=== PATIENT | male | born 1940 | race Caucasian/White ===

== ENCOUNTER 2019-11-27 12:05 | Outpatient (CLI) | payer MEDICARE, BC, SELFPAY ==
[2019-11-27 12:37] LABS: Basophils Percent Auto 0.5 % (0.2-1.2); Eosinophils Absolute Auto 0.1 K/mm3 (0-0.3); Eosinophils Percent Auto 1.4 % (0-4.4); Hematocrit 46.2 % (42.0-52.0); Hemoglobin 14.6 g/dL (14.0-18.0); Immature Granulocyte Absolute 0.02 K/mm3 (0.00-0.031); Immature Granulocyte Percent A 0.4 % (0-0.5); Lymphocytes Absolute Auto 1.67 K/mm3 (0.9-3.2); Lymphocytes Percent Auto 29.7 % (18.3-44.2); Mean Corpuscular HGB Conc 31.6 g/dl (32-36); Mean Corpuscular Hemoglobin 29.5 pg (26-34); Mean Corpuscular Volume 93.3 fl (80-100); Mean Platelet Volume 11.7 fl (7.4-10.4); Monocytes Absolute Auto 0.6 K/mm3 (0.1-0.6); Monocytes Percent Auto 10.3 % (2.6-8.5); Neutrophils Absolute Auto 3.3 K/mm3 (1.3-6.7); Neutrophils Percent Auto 57.7 % (45.5-73.1); Platelet Count Result 213 k/mm3 (150-375); Red Blood Count 4.95 M/mm3 (4.6-6.20); Red Cell Distribution Width 14.5 % (11.5-14.5); White Blood Count 5.6 K/mm3 (4.5-10.0)
[2019-11-27 12:49] LABS: Alanine Aminotransferase 21 U/L (4-50); Albumin Level 4.2 g/dL (3.5-5.1); Alkaline Phosphatase 36 U/L (38-126); Aspartate Amino Transferase 27 U/L (17-59); Bilirubin,Total 0.7 mg/dL (0.2-1.3); Blood Urea Nitrogen 28 mg/dL (9-20); Calcium 9.7 mg/dL (8.4-10.2); Carbon Dioxide 32 mmol/L (22-30); Chloride 97 mmol/L (98-107); Estimated Glomerular Filt Rate 54; Glucose 126 mg/dL (75-110); Potassium 3.9 mmol/L (3.4-5.0); Sodium 137 mmol/L (137-145)
== END 2019-11-27 12:06 | disposition home or self-care (01) ==
PROVIDERS: PCP Family Medicine; Visit Provider Family Medicine
DX: I10 Essential (primary) hypertension (principal)
CPT/HCPCS: 36415; 80053; 85025

== ENCOUNTER 2020-12-25 06:54 | Outpatient (CLI) | payer MEDICARE, BC, SELFPAY ==
[2020-12-25 07:36] LABS: Basophils Percent Auto 0.5 % (0.2-1.2); Eosinophils Absolute Auto 0.2 K/mm3 (0-0.3); Eosinophils Percent Auto 2.3 % (0-4.4); Hematocrit 45.8 % (42.0-52.0); Hemoglobin 14.6 g/dL (14.0-18.0); Immature Granulocyte Absolute 0.01 K/mm3 (0.00-0.031); Immature Granulocyte Percent A 0.1 % (0-0.5); Lymphocytes Absolute Auto 1.68 K/mm3 (0.9-3.2); Lymphocytes Percent Auto 21.4 % (18.3-44.2); Mean Corpuscular HGB Conc 31.9 g/dl (32-36); Mean Corpuscular Hemoglobin 30.2 pg (26-34); Mean Corpuscular Volume 94.8 fl (80-100); Mean Platelet Volume 10.7 fl (7.4-10.4); Monocytes Absolute Auto 0.9 K/mm3 (0.1-0.6); Monocytes Percent Auto 11.3 % (2.6-8.5); Neutrophils Absolute Auto 5.1 K/mm3 (1.3-6.7); Neutrophils Percent Auto 64.4 % (45.5-73.1); Platelet Count Result 207 k/mm3 (150-375); Red Blood Count 4.83 M/mm3 (4.6-6.20); Red Cell Distribution Width 15.3 % (11.5-14.5); White Blood Count 7.9 K/mm3 (4.5-10.0)
[2020-12-25 07:49] LABS: Alanine Aminotransferase 24 U/L (4-50); Albumin Level 4.1 g/dL (3.5-5.1); Alkaline Phosphatase 36 U/L (38-126); Anion Gap 3 mmol/L (8-16); Aspartate Amino Transferase 33 U/L (17-59); Bilirubin,Total 0.6 mg/dL (0.2-1.3); Blood Urea Nitrogen 23 mg/dL (9-20); Calcium 9.1 mg/dL (8.4-10.2); Carbon Dioxide 35 mmol/L (22-30); Chloride 103 mmol/L (98-107); Cholesterol 110 mg/dL (0-200); Estimated Glomerular Filt Rate 59; Glucose 106 mg/dL (75-110); HDL Direct 38 mg/dL; Potassium 4.5 mmol/L (3.4-5.0); Sodium 141 mmol/L (137-145); Triglycerides 86 mg/dL (<150)
[2020-12-25 08:00] LABS: LDL Cholesterol Direct 50 mg/dL
== END 2020-12-25 06:55 | disposition home or self-care (01) ==
PROVIDERS: PCP Family Medicine; Visit Provider Physician Assistant
DX: I10 Essential (primary) hypertension (principal); E78.2 Mixed hyperlipidemia
CPT/HCPCS: 36415; 80053; 80061; 85025

== ENCOUNTER 2021-07-07 12:21 | Outpatient (CLI) | payer MEDICARE, BC, SELFPAY ==
--- NOTE | ~2021-07-07 | XR_ITS ---
EXAMINATION: XR chest 2V EXAM DATE: 07/07/2021 12:41 INDICATION: R06.02 - Shortness of breath. TECHNIQUE: Frontal and lateral projections of the chest obtained and reviewed. Comparison is made to prior examination from 05/19/2018. FINDINGS: There is abnormal reticular prominence, differential diagnosis including interstitial lung disease and pulmonary edema. Heart is normal in size. This is more pronounced than on previous exami nation. No confluent consolidation, pneumothorax or pleural effusion suspected. Shoulder replacements . IMPRESSION: Prominent reticulation, edema and/or interstitial lung disease. Reviewed, dictated and finalized at location B.
== END 2021-07-07 12:22 | disposition home or self-care (01) ==
PROVIDERS: PCP Family Medicine; Visit Provider Physician Assistant
DX: J44.9 Chronic obstructive pulmonary disease, unspecified (principal); R06.00 Dyspnea, unspecified; R06.02 Shortness of breath
CPT/HCPCS: 71046

== ENCOUNTER 2021-07-18 06:36 | Outpatient (CLI) | payer MEDICARE, BC, SELFPAY ==
[2021-07-18 08:05] LABS: Alanine Aminotransferase 22 U/L (4-50); Albumin Level 4.6 g/dL (3.5-5.1); Alkaline Phosphatase 31 U/L (38-126); Anion Gap 9 mmol/L (8-16); Aspartate Amino Transferase 33 U/L (17-59); Bilirubin,Total 0.8 mg/dL (0.2-1.3); Blood Urea Nitrogen 23 mg/dL (9-20); Calcium 9.2 mg/dL (8.4-10.2); Carbon Dioxide 30 mmol/L (22-30); Chloride 102 mmol/L (98-107); Cholesterol 127 mg/dL (0-200); Estimated Glomerular Filt Rate 59; Glucose 111 mg/dL (65-110); HDL Direct 40 mg/dL; Potassium 4.6 mmol/L (3.4-5.0); Sodium 141 mmol/L (137-145); Triglycerides 87 mg/dL (<150)
[2021-07-18 08:16] LABS: LDL Cholesterol Direct 65 mg/dL
== END 2021-07-18 06:37 | disposition home or self-care (01) ==
PROVIDERS: PCP Family Medicine; Visit Provider Internal Medicine Cardiovascular Disease
DX: I25.10 Atherosclerotic heart disease of native coronary artery without angina pectoris (principal); I25.84 Coronary atherosclerosis due to calcified coronary lesion; E78.00 Pure hypercholesterolemia, unspecified
CPT/HCPCS: 36415; 80053; 80061

== ENCOUNTER 2021-08-09 09:08 | Outpatient (CLI) | payer MEDICARE, BC, SELFPAY ==
[2021-08-09 09:55] LABS: Anion Gap 8 mmol/L (8-16); Blood Urea Nitrogen 22 mg/dL (9-20); Calcium 9.3 mg/dL (8.4-10.2); Carbon Dioxide 34 mmol/L (22-30); Chloride 103 mmol/L (98-107); Estimated Glomerular Filt Rate 59; Glucose 185 mg/dL (65-110); Potassium 3.8 mmol/L (3.4-5.0); Sodium 145 mmol/L (137-145)
== END 2021-08-09 09:09 | disposition home or self-care (01) ==
LOC: ANHLAB 09:09
PROVIDERS: PCP Family Medicine; Visit Provider Physician Assistant
DX: I10 Essential (primary) hypertension (principal)
CPT/HCPCS: 36415; 80048

== ENCOUNTER 2022-01-14 06:50 | Outpatient (CLI) | payer MEDICARE, BC, SELFPAY ==
[2022-01-14 07:34] LABS: Basophils Absolute Auto 0.1 K/mm3 (0.0-0.1); Basophils Percent Auto 0.6 % (0.2-1.2); Eosinophils Absolute Auto 0.2 K/mm3 (0-0.3); Eosinophils Percent Auto 1.9 % (0-4.4); Hematocrit 45.1 % (42.0-52.0); Hemoglobin 14.5 g/dL (14.0-18.0); Immature Granulocyte Absolute 0.02 K/mm3 (0.00-0.031); Immature Granulocyte Percent A 0.2 % (0-0.5); Lymphocytes Absolute Auto 1.39 K/mm3 (0.9-3.2); Lymphocytes Percent Auto 16.7 % (18.3-44.2); Mean Corpuscular HGB Conc 32.2 g/dl (32-36); Mean Corpuscular Hemoglobin 30.7 pg (26-34); Mean Corpuscular Volume 95.3 fl (80-100); Mean Platelet Volume 11.6 fl (7.4-10.4); Monocytes Absolute Auto 0.8 K/mm3 (0.1-0.6); Monocytes Percent Auto 9.4 % (2.6-8.5); Neutrophils Absolute Auto 5.9 K/mm3 (1.3-6.7); Neutrophils Percent Auto 71.2 % (45.5-73.1); Platelet Count Result 232 k/mm3 (150-375); Red Blood Count 4.73 M/mm3 (4.6-6.20); Red Cell Distribution Width 14.4 % (11.5-14.5); White Blood Count 8.3 K/mm3 (4.5-10.0)
[2022-01-14 07:48] LABS: Alanine Aminotransferase 17 U/L (4-50); Albumin Level 3.9 g/dL (3.5-5.1); Alkaline Phosphatase 58 U/L (38-126); Anion Gap 6 mmol/L (8-16); Aspartate Amino Transferase 23 U/L (17-59); Bilirubin,Total 0.8 mg/dL (0.2-1.3); Blood Urea Nitrogen 20 mg/dL (9-20); Calcium 8.6 mg/dL (8.4-10.2); Carbon Dioxide 30 mmol/L (22-30); Chloride 104 mmol/L (98-107); Cholesterol 87 mg/dL (0-200); Estimated Glomerular Filt Rate > 60; Glucose 116 mg/dL (65-110); HDL Direct 39 mg/dL; Potassium 3.9 mmol/L (3.4-5.0); Sodium 140 mmol/L (137-145); Triglycerides 70 mg/dL (<150)
[2022-01-14 07:59] LABS: LDL Cholesterol Direct < 30 mg/dL
== END 2022-01-14 06:51 | disposition home or self-care (01) ==
LOC: ANHLAB 06:52
PROVIDERS: PCP Family Medicine; Visit Provider Nurse Practitioner Gerontology
DX: E78.2 Mixed hyperlipidemia (principal); I48.11 Longstanding persistent atrial fibrillation; R00.1 Bradycardia, unspecified; I10 Essential (primary) hypertension
CPT/HCPCS: 36415; 80053; 80061; 84443; 85025

== ENCOUNTER 2023-02-05 07:02 | Outpatient (CLI) | payer MEDICARE, BC, SELFPAY ==
[2023-02-05 07:43] LABS: Alanine Aminotransferase 22 U/L (6-50); Albumin Level 4.1 g/dL (3.5-5.1); Alkaline Phosphatase 56 U/L (38-126); Anion Gap 6 mmol/L (8-16); Aspartate Amino Transferase 25 U/L (17-59); Bilirubin,Total 0.9 mg/dL (0.2-1.3); Blood Urea Nitrogen 24 mg/dL (9-20); Calcium 9.1 mg/dL (8.4-10.2); Carbon Dioxide 32 mmol/L (22-30); Chloride 103 mmol/L (98-107); Cholesterol 105 mg/dL (0-200); Estimated Glomerular Filt Rate > 60; Glucose 107 mg/dL (65-110); HDL Direct 45 mg/dL; Potassium 3.9 mmol/L (3.4-5.0); Sodium 141 mmol/L (137-145); Triglycerides 87 mg/dL (<150)
[2023-02-05 07:54] LABS: LDL Cholesterol Direct 38 mg/dL
[2023-02-05 08:25] LABS: Basophils Absolute Auto 0.1 K/mm3 (0.0-0.1); Basophils Percent Auto 0.9 % (0.2-1.2); Eosinophils Absolute Auto 0.2 K/mm3 (0-0.3); Eosinophils Percent Auto 2.6 % (0-4.4); Hematocrit 47.8 % (42.0-52.0); Immature Granulocyte Absolute 0.01 K/mm3 (0.00-0.031); Immature Granulocyte Percent A 0.2 % (0-0.5); Lymphocytes Absolute Auto 1.51 K/mm3 (0.9-3.2); Lymphocytes Percent Auto 23.4 % (18.3-44.2); Mean Corpuscular HGB Conc 31.4 g/dl (32-36); Mean Corpuscular Hemoglobin 30.4 pg (26-34); Mean Corpuscular Volume 96.8 fl (80-100); Monocytes Absolute Auto 0.8 K/mm3 (0.1-0.6); Monocytes Percent Auto 11.9 % (2.6-8.5); Neutrophils Absolute Auto 3.9 K/mm3 (1.3-6.7); Platelet Count Result 188 k/mm3 (150-375); Red Blood Count 4.94 M/mm3 (4.6-6.20); Red Cell Distribution Width 14.8 % (11.5-14.5); White Blood Count 6.5 K/mm3 (4.5-10.0)
== END 2023-02-05 07:03 | disposition home or self-care (01) ==
LOC: ANHLAB 07:04
PROVIDERS: PCP Family Medicine; Visit Provider Nurse Practitioner Gerontology
DX: I11.0 Hypertensive heart disease with heart failure (principal); I50.9 Heart failure, unspecified; I48.91 Unspecified atrial fibrillation; E78.2 Mixed hyperlipidemia
CPT/HCPCS: 36415; 80053; 80061; 85025

== ENCOUNTER 2023-06-08 11:49 | Outpatient (CLI) | payer MEDICARE, BC, SELFPAY ==
[2023-06-08 12:25] LABS: Alanine Aminotransferase 23 U/L (6-50); Albumin Level 4.1 g/dL (3.5-5.1); Alkaline Phosphatase 54 U/L (38-126); Anion Gap 7 mmol/L (8-16); Aspartate Amino Transferase 28 U/L (17-59); Blood Urea Nitrogen 26 mg/dL (9-20); Carbon Dioxide 29 mmol/L (22-30); Chloride 100 mmol/L (98-107); Estimated Glomerular Filt Rate 49; Glucose 90 mg/dL (65-110); Potassium 3.6 mmol/L (3.4-5.0); Sodium 136 mmol/L (137-145)
[2023-06-08 12:32] LABS: NT Pro B Type Natriuretic Pept 1140 pg/mL (19.9-100)
== END 2023-06-08 11:50 | disposition home or self-care (01) ==
LOC: ANHLAB 11:52
PROVIDERS: PCP Family Medicine; Visit Provider Family Medicine
DX: I10 Essential (primary) hypertension (principal); I50.32 Chronic diastolic (congestive) heart failure
CPT/HCPCS: 36415; 80053; 83880

== ENCOUNTER 2024-02-19 06:58 | Outpatient (CLI) | payer MEDICARE, BC, SELFPAY ==
[2024-02-19 07:33] LABS: Alanine Aminotransferase 20 U/L (6-50); Albumin Level 4.1 g/dL (3.5-5.1); Alkaline Phosphatase 55 U/L (38-126); Anion Gap 4 mmol/L (4-12); Aspartate Amino Transferase 24 U/L (17-59); Bilirubin,Total 0.8 mg/dL (0.2-1.3); Blood Urea Nitrogen 23 mg/dL (9-20); Calcium 9.3 mg/dL (8.4-10.2); Carbon Dioxide 33 mmol/L (22-30); Chloride 103 mmol/L (98-107); Cholesterol 102 mg/dL (0-200); Estimated Glomerular Filt Rate 49; Glucose 118 mg/dL (65-110); HDL Direct 50 mg/dL; Sodium 140 mmol/L (137-145); Triglycerides 100 mg/dL (<150)
[2024-02-19 07:43] LABS: LDL Cholesterol Direct 46 mg/dL
[2024-02-19 07:44] LABS: Basophils Absolute Auto 0.1 K/mm3 (0.0-0.1); Eosinophils Absolute Auto 0.2 K/mm3 (0-0.3); Eosinophils Percent Auto 2.2 % (0-4.4); Hematocrit 48.8 % (42.0-52.0); Hemoglobin 15.2 g/dL (14.0-18.0); Immature Granulocyte Absolute 0.09 K/mm3 (0.00-0.031); Immature Granulocyte Percent A 1.3 % (0-0.5); Lymphocytes Percent Auto 27.8 % (18.3-44.2); Mean Corpuscular HGB Conc 31.1 g/dl (32-36); Mean Corpuscular Hemoglobin 30.2 pg (26-34); Mean Platelet Volume 11.6 fl (7.4-10.4); Monocytes Absolute Auto 0.7 K/mm3 (0.1-0.6); Monocytes Percent Auto 10.4 % (2.6-8.5); Neutrophils Absolute Auto 3.9 K/mm3 (1.3-6.7); Neutrophils Percent Auto 57.3 % (45.5-73.1); Platelet Count Result 187 k/mm3 (150-375); Red Blood Count 5.03 M/mm3 (4.6-6.20); Red Cell Distribution Width 14.9 % (11.5-14.5); White Blood Count 6.8 K/mm3 (4.5-10.0)
== END 2024-02-19 06:59 | disposition home or self-care (01) ==
LOC: ANHLAB 07:01
PROVIDERS: PCP Family Medicine; Visit Provider Family Medicine
DX: I10 Essential (primary) hypertension (principal); I48.91 Unspecified atrial fibrillation; E78.2 Mixed hyperlipidemia; M19.90 Unspecified osteoarthritis, unspecified site; R73.9 Hyperglycemia, unspecified
CPT/HCPCS: 36415; 80053; 80061; 83036; 84443; 84550; 85025

== ENCOUNTER 2024-12-09 08:00 | Outpatient (CLI) | payer MEDICARE, BC, SELFPAY ==
--- OUTSIDE RECORDS SUMMARY | 2024-12-09 08:04 | XMS_ITS | Patient Health Summary ---
Author Organization [facility] Address [address] [place] [address] Care Team Providers Care Mobile Health Vehicle Operator Name Role Phone Jade Dawkins MD Primary Care Provider + Note from [facility],non-owned Affiliates and Associated Physician Practices is amultiple site organization consisting of ambulatory clinics and hospital sitesin [place], [place], [place] and [place]. This disclosure is being madepursuant to the Care Everywhere program and may not contain all information available regarding this patient. Last updated 18.[facility] [employer] [facility] Allergies No known active allergies Medications * Be aware that medications may not be up to date on this document. Alwaysverify current medications with the patient. * fenofibrate micronized (LOFIBRA) 134 MG capsule Take 134 mg by mouth once daily Take with largest meal of the day. * losartan-hydrochlorothiazide (HYZAAR) 100-12.5 MG tablet Take 1 Tab by mouth once daily * diltiazem coated beads 24hr (CARDIZEM CD) 240 MG capsule Take 240 mg by mouth at bedtime * metoprolol succinate XL 24hr (TOPROL XL) 50 MG tablet Take 50 mg by mouth 2 times daily * multivitamin daily (THERAGRAN) tablet Take 1 Tab by mouth daily with food * vitamin D3 (CHOLECALCIFEROL) 1000 UNIT capsule Take 1,000 Units by mouth once daily * acetaminophen (TYLENOL) 325 MG tablet Take 325 mg by mouth every 4 hours as needed for Fever or Pain Maximum allowable Acetaminophen amount = 4 Grams (4000 mg) / 24 hours. * oxyCODONE-acetaminophen (PERCOCET) 5-325 MG tablet(Started 12/31/2015) Take 1 Tab by mouth every 4 hours as needed * amoxicillin-clavulanate (AUGMENTIN) 875-125 MG tablet(Started 12/31/2015) Take 1 Tab by mouth 2 times daily with morning and evening meal Active Problems Problem Noted Date Diagnosed Date Male erectile disorder 12/29/2015 Social History Tobacco Use Types Packs/Day Years Used Date Smoking Tobacco: Former Cigarettes Q uit: 10/25/1994 Alcohol Use Standard Drinks/Week Comments Yes 3 (1 standard drink = 0.6 oz pur e alcohol) Sex and Gender Information Value Date Recorded Sex Assigned at Not on file Gender Identity Not on file Sexual Orientation Not on file Last Filed Vital Signs Vital Sign Reading Time Taken Comments Blood Pressure 144/73 12/31/2015 12:06 PM STEMMER MACHINE Pulse 77 12/31/2015 12:06 PM [employer] MACHINE Temperature 36.3 C (97.3 F) 12/31/2015 12:06 PM [employer]MER MACHINE Respiratory Rate 18 12/31/2015 12:06 PM STEMMER MACHINE Oxygen Saturation 93% 12/31/2015 12:06 PM STEMMER MACHINE Inhaled Oxygen Concentration - - Weight 129.7 kg (286 lb) 12/30/2015 5:48 AM STEMMER MACHINE Height 193 cm (6' 4 ) 12/30/2015 5:48 AM STEMMER MACHINE Body Mass Index 34.81 12/30/2015 5:48 AM STEMMER MACHINE Medical Devices Implanted Type Area Missionary Coordinator Device Identifier Shelf Expiration Date Model / Serial / Lot Kt Penile Prosth Assdonnell Rueda Implanted:Qty: 1 on 12/30/2015 by Fred Diggs MD at [facility] N/A: Penis [employer] 08/06/2020 [id number] / / [id number] Resvr Titan 75cc Implanted:Qty: 1 on 12/30/2015 by Fred Diggs MD at [facility] N/A: Penis [employer] 09/28/2020 [id number] / / [id number] Implt Titan Scrot Cylnr W/Pump 0deg 20cm Implanted:Qty: 1 on 12/30/2015 by Fred Diggs MD at [facility] N/A: Penis [employer] 07/23/2020 [id number] / / [id number] Procedures * CARDIAC EKG ORDER(Performed 01/02/2016) * CARDIAC HOLTER MONITOR ORDER(Performed 01/02/2016) * INSERTION PROSTHESIS PENILE(Performed 12/30/2015) * EKG 12-LEAD(Performed 12/16/2015) Performed for Preop examination * URINALYSIS REFLEX MICROSCOPIC REFLEX CULTURE(Performed 12/16/2015) Performed for Preop examination * BASIC METABOLIC PANEL (CALCIUM TOTAL)(Performed 12/16/2015) Performed for Preop examination * CULTURE URINE(Performed 12/16/2015) Performed for Preop examination, Male erectile disorder Results * CARDIAC EKG ORDER (01/02/2016 2:21 AM STEMMER MACHINE) Narrative 01/02/2016 2:21 AM STEMMER MACHINE Ordered by an unspecified provider. Scanned Document CARDIAC SERVICES ORD ERABLES * CARDIAC HOLTER MONITOR ORDER (01/02/2016 2:21 AM STEMMER MACHINE) Narrative 01/02/2016 2:21 AM STEMMER MACHINE Ordered by an unspecified provider. Scanned Document CARDIAC SERVICES ORD ERABLES * EKG 12-LEAD (12/16/2015 11:36 AM STEMMER MACHINE) Ventricular Rate 60 BPM [facility] Atrial Rate 312 BPM [facility] QRS Duration ms 92 ms [facility] Q-T Interval ms 430 ms [facility] QTC Calculation (Bezet) 430 ms [facility] Calculated R Eva 6 degrees [facility] Calculated T Eva 47 degrees [facility] Interpretation EKG Atrial fibrillation Abnormal ECG No previous ECGs available Confirmed by MICHELLE RAMIREZ MD ([id number]) on 12/16/2015 12:05:31 PM [facility] 12/16/2015 11:3 6 AM STEMMER MACHINE 12/16/2015 12:05 PM STEMMER MACHINE Fred Diggs MD ECG ORDERABLES [facility] * URINALYSIS ROUTINE W/REFLEX TO CULTURE (12/16/2015 10:52 AM STEMMER MACHINE) Color UA Yellow Straw, Yellow, Dark Yellow 12/16/2015 12:49 PM STEMMER MACHINE [facility] Clarity UA Cloudy 12/16/2015 12:49 PM STEMMER MACHINE [facility] Specific [place] UA 1.019 1.005 - 1.030 12/16/2015 12:49 PM STEMMER MACHINE [facility] pH UA 7.5 5.0 - 8.0 pH 12/16/2015 12:49 PM STEMMER MACHINE [facility] Protein UA Negative Negative 12/16/2015 12:49 PM STEMMER MACHINE [facility] Blood UA Negative Negative 12/16/2015 12:49 PM STEMMER MACHINE [facility] Leukocyte UA Negative Negative 12/16/2015 12:49 PM STEMMER MACHINE [facility] Nitrite UA Negative Negative 12/16/2015 12:49 PM STEMMER MACHINE [facility] Glucose UA Negative Negative 12/16/2015 12:49 PM STEMMER MACHINE [facility] Ketone UA Negative Negative 12/16/2015 12:49 PM STEMMER MACHINE [facility] Bilirubin UA Negative Negative 12/16/2015 12:49 PM STEMMER MACHINE [facility] Urobilinogen UA 1.0 0.1 - 1.0 EU/dL 12/16/2015 12:49 PM STEMMER MACHINE [facility] Reflex Status Culture not indicated 12/16/2015 12:49 PM [facility] Urine URINE SPECIMEN OBTAINED BY CLEAN CATCH PROCEDURE / Unknown 12/16/2015 10:52 AM STEMMER MACHINE 12/16/2015 12:14 PM STEMMER MACHINE Fred Diggs MD LAB - URINALYSIS O RDERABLES Performing Organization Address City/[facility] Co de Phone Number [facility] [address] [place] [address] * CULTURE URINE (12/16/2015 10:52 AM STEMMER MACHINE) Culture <10,000 CFU/mL urogenital walker [place] 12/18/2015 9:49 AM STEMMER MACHINE [facility] Urine URINE SPECIMEN OBTAINED BY CLEAN CATCH PROCEDURE / Unknown 12/16/2015 10:52 AM STEMMER MACHINE 12/16/2015 2:06 PM STEMMER MACHINE Fred Diggs MD LAB - MICROBIOLOGY ORDERABLES Performing Organization Address [facility] Co de Phone Number [facility] [address] [place], [place] [address], [facility] [phone] * (ABNORMAL) BASIC METABOLIC PANEL (CALCIUM TOTAL) (12/16/2015 10:52 AM [facility]) Glucose 97 74 - 106 mg/dL 12/16/2015 12:31 PM [facility] Sodium 141 136 - 145 mmol/L 12/16/2015 12:31 PM [facility] Potassium 3.9 3.5 - 5.1 mmol/L 12/16/2015 12:31 PM [facility] Chloride 105 98 - 107 mmol/L 12/16/2015 12:31 PM [facility] CO2 30 22 - 31 mmol/L 12/16/2015 12:31 PM [facility] Calcium 9.2 8.5 - 10.1 mg/dL 12/16/2015 12:31 PM [facility] Anion Gap 6 5 - 20 mmol/L 12/16/2015 12:31 PM [facility] BUN 22(H) 7 - 21 mg/dL 12/16/2015 12:31 PM [facility] Creatinine 1.50(H) 0.50 - 1.30 mg/dL 12/16/2015 12:31 PM [facility] eGFR by MDRD 46 mL/min/1.7 2 12/16/2015 12:31 PM [facility] eGFR by MDRD 56 mL/min/1.7 3m2 12/16/2015 12:31 PM [facility] Blood BLOOD SPECIMEN / Unknown 12/16/2015 10:52 AM STEMMER MACHINE 12/16/2015 12:14 PM [facility] Fred Diggs MD LAB - CHEMISTRY OR DERABLES [facility] [address] [place] [address] Care Teams Mobile Health Vehicle Operator Relationship Specialty Start Date End Date Jade Dawkins MD [address] [place] [phone] PCP - General Family Medicine 12/16/15
--- OUTSIDE RECORDS SUMMARY | 2024-12-09 08:04 | XMS_ITS | Referral Summary ---
Author Organization [facility] [address] Address [address] [place] [address] Care Team Providers Care Brine Supervisor Name Role Phone Jade Dawkins MD Primary Care Provider Encounters Date Type Department Care Team Description 11/30/2024 10:15 AM TIRE MAN Office Visit [facility] [address] [place] [address] Nikki Mullins MD Permanent atrial fibrillation (CMS/HCC) (HCC) (Primary Dx); History of deep vein thrombosis; History of pulmonary embolism; Calcification of coronary artery; Essential hypertension; Chronic anticoagulation; Mixed hyperlipidemia from Last 3 Months Allergies Active Allergy Reactions Criticality Noted Date Comments Metoprolol Fatigue Low 11/11/2022 Medications losartan-hydroCH LOROthiazide (HYZAAR) 100-12.5 mg per tablet take 1 tablet by oral route every day 0 3 Active Additional Information Patient taking differently: oral Every morning, Indications: hypertension, Informant: Self, Reported on 11/30/2024 acetaminophen (TYLENOL) 325 mg tablet Take 2 tablets (650 mg total) by mouth every 6 (six) hours as needed for pain 100 tablet 1 0 Active dilTIAZem CD 180 mg 24 hr capsuleIndicatio ns:Essential hypertension TAKE 1 CAPSULE DAILY 90 capsule 0 Active Additional Information Patient taking differently: 180 mg oral Daily (early AM), Indications: hypertension, Reported on 11/30/2024 clobetasoL (TEMOVATE) 0.05 % gel clobetasol 0.05 % topical gel APPLY A THIN LAYER TO THE AFFECTED AREA(S) BY TOPICAL ROUTE 2 TIMES PER DAY Active furosemide (LASIX) 40 mg tablet 2 Active rivaroxaban (Xarelto) 20 mg tablet Take 1 tablet (20 mg total) by mouth nightly Take with supper 2 Active cholecalciferol (Vitamin D3) 2000 unit capsule Take 1 capsule (2,000 Units total) by mouth daily Active tadalafiL (CIALIS) 5 mg tablet TAKE 1 TABLET BY MOUTH ONCE DAILY FOR SEXUAL ACTIVITY. ADMINISTER APPOXIMATELY 30 MINUTES BEFORE SEXUAL ACTIVITY. DO NOT USE MORE THAN 1 DOSE IN 24 HOURS 3 Active fluticasone-umec lidin-vilanter (Trelegy Ellipta) 100-62.5-25 mcg inhaler Inhale 1 puff daily Active atorvastatin (LIPITOR) 20 mg tablet TAKE 1 TABLET DAILY (REPLACES FENOFIBRATE) 90 tablet 3 4 Active Active Problems Problem Noted Date Diagnosed Date Mixed hyperlipidemia 11/30/2024 Hip pain, bilateral 01/21/2022 Bradycardia 01/21/2022 Exhaustion 07/23/2020 Class 1 obesity with body ma ss index (BMI) of 33.0 to 33.9 in adult 07/18/2020 Risk factors for obstructive sleep apnea 020 History of pulmonary embolism 07/18/2020 Primary osteoarthritis, left shoulder 06/10/2020 Overview (06/10/2020): Added automatically from request for surgery [id number] Osteoarthritis of right shoulder 12/18/2019 Overview (12/18/2019): Added automatically from request for surgery [id number] Chronic anticoagulation 07/12/2019 History of deep vein thrombosis 07/12/2019 Other male erectile dysfunction 07/12/2019 Hypercholesterolemia 10/27/2016 Overview (01/28/2017): Hypercholesterolemia Calcification of coronary artery 11/18/2015 Overview (01/28/2017): Coronary artery calcification Other emphysema 11/18/2015 Overview (01/28/2017): Chronic obstructive pulmonary disease, unspecified Essential hypertension 03/10/2014 Overview (01/28/2017): HYPERTENSION NOS Atrial flutter ([facility]) 03/10/2014 Overview (01/29/2017): ATRIAL FLUTTER Permanent atrial fibrillation ([facility]) 03/10/20 14 Overview (01/29/2017): ATRIAL FIBRILLATION Aortic valve insufficiency 07/17/2013 Overview (01/28/2017): Aortic insufficiency Resolved Problems Problem Noted Date Diagnosed Date Resolved Date Pain of right lower extremity 02/02/2018 07/12/2019 Preoperative state 11/18/2015 9 Overview (01/28/2017): Preoperative cardiovascular examination History of anticoagulant therapy 03/10/2014 07/12/2019 Overview (01/29/2017): LONG-TERM USE ANTICOAGUL Deep vein thrombosis (DVT) d uring current hospitalization ([facility]) 07/17/2013 07/12/2019 Overview (01/28/2017): DVT, lower extremity, distal, chronic History of pulmonary embolism 07/17/2013 11/30/2024 Overview (01/28/2017): Chronic pulmonary embolism Social History Tobacco Use Types Packs/Day Years Used Date Smoking Tobacco: Former Cigarettes 2.5 37 1 958 - 1994 Smokeless Tobacco: Never Tobacco Cessation:Counseling Given: Not Answered Alcohol Use Standard Drinks/Week Comments Yes 0 (1 standard drink = 0.6 oz pur e alcohol) rare Sex and Gender Information Value Date Recorded Sex Assigned at Not on file Legal Sex Male 5:32 PM TIRE MAN Gender Identity Not on file Sexual Orientation Not on file Last Filed Vital Signs Vital Sign Reading Time Taken Comments Blood Pressure 130/60 11/30/2024 10:13 AM TIRE MAN Pulse 60 11/30/2024 10:13 AM TIRE MAN Temperature 36.3 C (97.3 F) 07/21/2020 11:50 AM CDT Respiratory Rate 16 07/21/2020 11:50 AM CDT Oxygen Saturation 95% 11/30/2024 10:13 AM TIRE MAN Inhaled Oxygen Concentration - - Weight 132.5 kg (292 lb) 11/30/2024 10:13 AM TIRE MAN Height 195.6 cm (6' 5 ) 11/30/2024 10:13 AM TIRE MAN Body Mass Index 34.63 11/30/2024 10:13 AM TIRE MAN Plan of Treatment Not on file Medical Devices Implanted Type Area Berry Picker Device Identifier Shelf Expiration Date Model / Serial / Lot [employer] 6191-1-010 Simplex P Radiopaque Full Dose Cement Bone Sterile - [id number] Implanted:Qty: 1 on 03/18/2020 by Von Epperson MD at [facility] Bone Cement Right: Shoulder [employer] 10/24/2021 6191-1-010 / / [id number] [employer] [id number] Global Ap 52mm [place] Glenoid Peg Fixation Premieron - [id number] Implanted:Qty: 1 on 03/18/2020 by Von Epperson MD at [facility] Other - see comments Right: Shoulder [employer] 09/23/2024 [id number] / / [id number] Description:[place] peg gleno id [employer] [id number] Global Unite 12mm Shoulder 135d Body Humeral Porocoat Sterile - [id number] Implanted:Qty: 1 on 03/18/2020 by Von Epperson MD at [facility] Other - see comments Right: Shoulder [employer] [id number] 07/24/2029 [id number] / / [id number] Description:Anatomic proxima l body [employer] [id number] Global Unite 12mm 120mm Modular Shoulder Standard Stem Humeral - [id number] Implanted:Qty: 1 on 03/18/2020 by Von Epperson MD at [facility] Other - see comments Right: Shoulder [employer] 09/23/2029 [id number] / / [id number] [employer] [id number] Global Unite 52mm 18mm Modular Eccentric Shoulder Head Humeral - [id number] Implanted:Qty: 1 on 03/18/2020 by Von Epperson MD at [facility] Other - see comments Right: Shoulder [employer] 10/24/2029 [id number] / / [id number] Description:Humeral head [employer] [id number] Global Unite 12mm Shoulder 135d Body Humeral Porocoat Sterile - [id number] Implanted:Qty: 1 on 07/20/2020 by Von Epperson MD at [facility] Left: Shoulder [employer] [id number] 11/24/2029 [id number] / / [id number] [employer] [id number] Global Unite 56mm 18mm Shoulder Eccentric Head Humeral - [id number] Implanted:Qty: 1 on 07/20/2020 by Von Epperson MD at [facility] Left: Shoulder [employer] [id number] 12/22/2026 [id number] / / [id number] [employer] 6191-1-010 Simplex P Radiopaque Full Dose Cement Bone Sterile - [id number] Implanted:Qty: 1 on 07/20/2020 at [facility] Left: Shoulder [employer] 10/24/2021 6191-1-010 / / [id number] [employer] [id number] Advantage 56mm [place] Peg Glenoid Component Glenoid Xlpe - [id number] - [id number] Implanted:Qty: 1 on 07/20/2020 by Von Epperson MD at [facility] Left: Shoulder [employer] [id number] 10/24/2022 [id number] / 6 / [employer] [id number] Global Unite 12mm 120mm Modular Shoulder Standard Stem Humeral - [id number] Implanted:Qty: 1 on 07/20/2020 by Von Epperson MD at [facility] Left: Shoulder [employer] [id number] 11/24/2029 [id number] / / [id number] Explanted Type Area Berry Picker Device Identifier Shelf Expiration Date Model / Serial / Lot [employer] 6191-1-010 Simplex P Radiopaque Full Dose Cement Bone Sterile - [id number] Explanted:Qty: 1 on 07/20/2020 at [facility] Left: Shoulder [employer] 6191-1-01 0 / / Insurance MEDICARE [employer] [employer] MEDICARE [facility] TRADITIONAL MEDICARE [employer] [employer] Advance Directives For more information, please contact: [phone] * Full Code (Latest Code Status on File) Date Activated Date Inactivated Comments 07/20/2020 12:55 PM 07/21/2020 5:24 PM * Full Code Date Activated Date Inactivated Comments 03/18/2020 2:52 PM 03/20/2020 9:15 PM Care Teams Brine Supervisor Relationship Specialty Start Date End Date Jade Dawkins MD [address] [facility] [address] [place] [address] PCP - General 02/07/13
--- OUTSIDE RECORDS SUMMARY | 2024-12-09 08:04 | XMS_ITS | Clinical Summary ---
Author Organization [facility] [place] [address] Address [address] [place] [address] Care Team Providers Care Shear Operator Name Role Phone Jade Dawkins MD Primary Care Provider Allergies Active Allergy Reactions Criticality Noted Date [...] (06/10/2020): Added automatically from request for surgery [id number] Osteoarthritis of right shoulder 12/18/2019 Overview (12/18/2019): Added automatically from request for surgery [id number] Chronic anticoagulation 07/12/2019 History of deep vein thrombosis 07/12/2019 Other male erectile dysfunction 07/12/2019 Hypercholesterolemia 10/27/2016 Overview (01/28/2017): Hypercholesterolemia Calcification of coronary artery 11/18/2015 Overview (01/28/2017): Coronary artery calcification Other emphysema 11/18/2015 Overview (01/28/2017): Chronic obstructive pulmonary disease, unspecified Essential hypertension 03/10/2014 Overview (01/28/2017): HYPERTENSION NOS Atrial flutter ([facility]) 03/10/2014 Overview (01/29/2017): ATRIAL FLUTTER Permanent atrial fibrillation ([facility]) 03/10/20 14 Overview (01/29/2017): ATRIAL FIBRILLATION Aortic valve insufficiency 07/17/2013 Overview (01/28/2017): Aortic insufficiency Resolved Problems Problem Noted Date Diagnosed Date Resolved Date Pain of right lower extremity 02/02/2018 07/12/2019 Preoperative state 11/18/2015 9 Overview (01/28/2017): Preoperative cardiovascular examination History of anticoagulant therapy 03/10/2014 07/12/2019 Overview (01/29/2017): LONG-TERM USE ANTICOAGUL Deep vein thrombosis (DVT) d uring current hospitalization (CMS/[facility]) 07/17/2013 07/12/2019 Overview (01/28/2017): DVT, lower extremity, distal, chronic History of pulmonary embolism 07/17/2013 11/30/2024 Overview (01/28/2017): Chronic pulmonary embolism Encounters Date Type Department Care Team Description 11/30/2024 10:15 AM BALLET DANCER Office Visit [facility] [address] [place] [id number] Nikki Mullins MD Permanent atrial fibrillation (CMS/[facility]) ([facility]) (Primary Dx); History of deep vein thrombosis; History of pulmonary embolism; Calcification of coronary artery; Essential hypertension; Chronic anticoagulation; Mixed hyperlipidemia from Last 3 Months Surgical History Surgery Date Site/Laterality Comments OTHER SURGICAL HISTORY Asbestosis: OTHER SURGICAL HISTORY Fatty liver by Ct scan: KNEE SURGERY Knee surgery FOOT SURGERY Foot surgery TOTAL HIP ARTHROPLASTY 2007 Left Total Hip Replacement TOTAL HIP ARTHROPLASTY 2007 Right Total Hip Replacement OTHER SURGICAL HISTORY Prostatectomy for CA, Dr. Montanez Medical History Medical History Date Comments Hx Other Medical 2008 Pulmonary Embol us, multiple Asbestosis (CMS/HCC) (HCC) 2007 Asbes tosis Hx Other Medical COPD: Emphysema Hx Other Medical [address] scan Hx Other Medical 2010 Pulmonary Embol us Hx Other Medical Chronic DVTs Hx Other Medical Penile pump; Co mments: ELU 10/27/2016 - PONV (postoperative nausea and vomiting) single episode Family History Medical History Relation Name Comments Anesthesia problems Neg Hx Social History Tobacco Use Types Packs/Day Years Used Date Smoking Tobacco: Former Cigarettes 2.5 37 1 048 - 1994 Smokeless Tobacco: Never Tobacco Cessation:Counseling Given: Not Answered Alcohol Use Standard Drinks/Week Comments Yes 0 (1 standard drink = 0.6 oz pur e alcohol) rare Sex and Gender Information Value Date Recorded Sex Assigned at Not on file Legal Sex Male 5:32 PM BALLET DANCER Gender Identity Not on file Sexual Orientation Not on file Obstetrics History Last Filed Vital Signs Vital Sign Reading Time Taken Comments Blood Pressure 130/60 11/30/2024 10:13 AM BALLET DANCER Pulse 60 11/30/2024 10:13 AM BALLET DANCER Temperature 36.3 C (97.3 F) 07/21/2020 11:50 AM CDT Respiratory Rate 16 07/21/2020 11:50 AM CDT Oxygen Saturation 95% 11/30/2024 10:13 AM BALLET DANCER Inhaled Oxygen Concentration - - Weight 132.5 kg (292 lb) 11/30/2024 10:13 AM BALLET DANCER Height 195.6 cm (6' 5 ) 11/30/2024 10:13 AM BALLET DANCER Body Mass Index 34.63 11/30/2024 10:13 AM BALLET DANCER Plan of Treatment Health Maintenance Due Date Last Done Comments Depression Screening 1942 Pneumococcal vaccine 65+ (1 of 2 - PCV) 1948 DTaP/Tdap/Td Vaccine (1 - Tdap) 1953 Hepatitis B Screening 1960 Zoster Vaccine (1 of 2) 1992 Abdominal Aortic Aneurysm (AAA) Screen 2007 Well Visit 65+ 2007 Fall Risk Assessment 07/21/2021 07/21/2020 Covid-19 Vaccine ( season) 2024, 12/18/2020 Influenza Vaccine (#1) 2024 Medical Devices Implanted Type Area Accountant Certified Public Device Identifier Shelf Expiration Date Model / Serial / Lot [employer] 6191-1-010 Simplex P Radiopaque Full Dose Cement Bone Sterile - [id number] Implanted:Qty: 1 on 03/18/2020 by Von Epperson MD at [facility] Bone Cement Right: Shoulder [employer] 10/24/2021 6191-1-010 / / [id number] [facility] Orthopa[employer]ics [facility] [id number] Global Ap 52mm [place] Glenoid Peg Fixation Premieron - [id number] Implanted:Qty: 1 on 03/18/2020 by Von Epperson MD at [facility] Other - see comments Right: Shoulder [employer] 09/23/2024 [id number] / / [id number] Description:[place] peg gleno id [employer] [id number] Global Unite 12mm Shoulder 135d Body Humeral Porocoat Sterile - [id number] Implanted:Qty: 1 on 03/18/2020 by Von Epperson MD at [facility] Other - see comments Right: Shoulder [employer] [id number] 07/24/2029 [id number] / / [id number] Description:Anatomic proxima l body [employer] [id number] Global Unite 12mm 120mm Modular Shoulder Standard Stem Humeral - [id number] Implanted:Qty: 1 on 03/18/2020 by Von Epperson MD at [facility] Other - see comments Right: Shoulder [employer] 09/23/2029 [id number] / / [id number] [employer] [id number] Global Unite 52mm 18mm Modular Eccentric Shoulder Head Humeral - [id number] Implanted:Qty: 1 on 03/18/2020 by Von Epperson MD at [facility] Other - see comments Right: Shoulder [employer] 10/24/2029 [id number] / / [id number] Description:Humeral head [employer] [id number] Global Unite 12mm Shoulder 135d Body Humeral [place] Sterile - [id number] Implanted:Qty: 1 on 07/20/2020 by Von Epperson MD at [facility] Left: Shoulder [employer] [id number] 11/24/2029 [id number] / / [id number] [employer] [id number] Global Unite 56mm 18mm Shoulder Eccentric Head Humeral - [id number] Implanted:Qty: 1 on 07/20/2020 by Von Epperson MD at [facility] Left: Shoulder [employer] [id number] 12/22/2026 [id number] / / [id number] [employer] 6191-1-010 Simplex P Radiopaque Full Dose Cement Bone Sterile - [id number] Implanted:Qty: 1 on 07/20/2020 at [facility] Left: Shoulder [employer] 10/24/2021 6191-1-010 / / [id number] [employer] [id number] l Advantage 56mm [place] Peg Glenoid Component Glenoid Xlpe - [id number] - [id number] Implanted:Qty: 1 on 07/20/2020 by Von Epperson MD at [facility] Left: Shoulder [employer] [id number] 10/24/2022 [id number] / 6 / [employer] [id number] Global Unite 12mm 120mm Modular Shoulder Standard Stem Humeral - [id number] Implanted:Qty: 1 on 07/20/2020 by Von Epperson MD at [facility] Left: Shoulder [employer] [id number] 11/24/2029 [id number] / / [id number] Explanted Type Area Accountant Certified Public Device Identifier Shelf Expiration Date Model / Serial / Lot [employer] 6191-1-010 Simplex P Radiopaque Full Dose Cement Bone Sterile - [id number] Explanted:Qty: 1 on 07/20/2020 at [facility] Left: Shoulder [employer] 6191-1-01 0 / / Insurance MEDICARE [facility] MEDICARE [facility] MEDICARE [facility] Advance Directives For more information, please contact: [phone] * Full Code (Latest Code Status on File) Date Activated Date Inactivated Comments 07/20/2020 12:55 PM 07/21/2020 5:24 PM * Full Code Date Activated Date Inactivated Comments 03/18/2020 2:52 PM 03/20/2020 9:15 PM Care Teams Shear Operator Relationship Specialty Start Date End Date Jaed Dawkins MD [address] [facility] [address] [place] [address] PCP - General 02/07/13
--- OUTSIDE RECORDS SUMMARY | 2024-12-09 08:05 | XMS_ITS | Data Portability ---
Author Organization [facility] SIR[facility] Mon[facility] Address [address] [place] [phone] Assessment No assessment recorded. Plan of Treatment Reminders Order Date Submit Date Provider Last Modified By Organization Details Last Modified Time Details Appointments None record ed. Lab None record ed. Referral None record ed. Procedures None record ed. Surgeries None record ed. Imaging None record ed. Medication Orders None record ed. Patient TargetsNo targets recorded. Patient InstructionsNo instructions recorded. Reason for Referral None Reported. Medical Equipment None Reported. Vitals None Recorded Social History None recorded. Functional Status None recorded. Mental Status None recorded. Family History Nothing Reported. Medical History No medical history recorded. Immunizations Vaccine Type Date Status Note Provider Nam e and Address Organization Details Recorded Time COVID-19, mRNA, LNP-S, PF, 100 mcg/0.5mL dose or 50 mcg/0.25mL dose 12/18/2020 completed Betty locke [place] [facility] NOEL 12/18/2020 17:28:26 COVID-19, mRNA, LNP-S, PF, 100 mcg/0.5mL dose or 50 mcg/0.25mL dose 01/15/2021 completed BRIDGET Maradiaga [facility] 01/15/2021 14:37:41 Past Encounters Encounter ID Performer Location Encounter Start Date Encounter Closed Date Diagnosis/Indication Diagnosis SNOMED-CT Code Diagnosis ICD10 Code Diagnosis Note [id number] BRIDGET Ye 14 IM 4 [facility] VIVIAN Abel [id number] 12/18/2020 12:09:29 12/19/2020 11:02:52 Administration of SARS-CoV-2 antigen vaccine 186000838 Z23 [id number] BRIDGET Ye 14 IM 4 [facility] VIVIAN Abel [id number] 01/15/2021 11:54:38 01/16/2021 16:01:03 Administration of SARS-CoV-2 antigen vaccine 287912051 Z23 Health Concerns Section Related Observation LastModified by Organization Detai ls LastModified Time None Recorded Concern Status LastModified by Organization Details LastModified Time None Recorded Advance Directives Directive None Recorded Payers Encounter Date Sequence Insurance Name Policy Number Policy Clancy Covered Member ID Clancy Member ID Guarantor Name 12/18/2020 1 [place] Jose Angel Dawson [id number] Jose Angel Dawson 12/18/2020 2 [place] [id number] Jose Angel Dawson [id number] Jose Angel Dawson 01/15/2021 1 [place] Jose Angel Dawson [id number] Jose Angel Dawson 01/15/2021 2 [place] [id number] Jose Angel Dawson [id number] Jose Angel Dawson
--- OUTSIDE RECORDS SUMMARY | 2024-12-09 08:05 | XMS_ITS | Clinical Summary ---
Author Organization [facility] Address [address] [place] [address] Care Team Providers Care Distillery Worker General Name Role Phone Jade Dawkins MD Primary Care Provider + Source Comments [facility],non-owned Affiliates and Associated Physician Practices is amultiple site organization consisting of ambulatory clinics and hospital sitesin [place], [place], [place] and [place]. This disclosure is being madepursuant to the Care Everywhere program and may not contain all information available regarding this patient. Last updated 18.[employer] [facility] Allergies No known active allergies Medications * Be aware that medications may not be up to date on this document. Alwaysverify current medications with the patient. Medication Sig Dispensed Refills Start Date End Date Status fenofibrate micronized (LOFIBRA) 134 MG capsule Take 134 mg by mouth once daily Take with largest meal of the day. Active losartan-hydrochlor othiazide (HYZAAR) 100-12.5 MG tablet Take 1 Tab by mouth once daily Active diltiazem coated beads 24hr (CARDIZEM CD) 240 MG capsule Take 240 mg by mouth at bedtime Active metoprolol succinate XL 24hr (TOPROL XL) 50 MG tablet Take 50 mg by mouth 2 times daily Active multivitamin daily (THERAGRAN) tablet Take 1 Tab by mouth daily with food Active vitamin D3 (CHOLECALCIFEROL) 1000 UNIT capsule Take 1,000 Units by mouth once daily Active acetaminophen (TYLENOL) 325 MG tablet Take 325 mg by mouth every 4 hours as needed for Fever or Pain Maximum allowable Acetaminophen amount = 4 Grams (4000 mg) / 24 hours. Active oxyCODONE-acetamino phen (PERCOCET) 5-325 MG tablet Take 1 Tab by mouth every 4 hours as needed 20 Tab 0 12/31/2015 Active amoxicillin-clavula ana paula (AUGMENTIN) 875-125 MG tablet Take 1 Tab by mouth 2 times daily with morning and evening meal 10 Tab 0 12/31/2015 Active Active Problems Problem Noted Date Diagnosed [...] Comments Blood Pressure 144/73 12/31/2015 12:06 PM MANUSCRIPT EDITOR Pulse 77 12/31/2015 12:06 PM MANUSCRIPT EDITOR Temperature 36.3 C (97.3 F) 12/31/2015 12:06 PM MANUSCRIPT EDITOR Respiratory Rate 18 12/31/2015 12:06 PM MANUSCRIPT EDITOR Oxygen Saturation 93% 12/31/2015 12:06 PM MANUSCRIPT EDITOR Inhaled Oxygen Concentration - - Weight 129.7 kg (286 lb) 12/30/2015 5:48 AM MANUSCRIPT EDITOR Height 193 cm (6' 4 ) 12/30/2015 5:48 AM MANUSCRIPT EDITOR Body Mass Index 34.81 12/30/2015 5:48 AM MANUSCRIPT EDITOR Plan of Treatment Health Maintenance Due Date Last Done Comments MEDICARE AWV 12 MONTHS 1942 DTAP/TDAP/TD VACCINES (1 - Tdap) 1961 PNEUMOCOCCAL VACCINE 50+ (1 of 1 - PCV) 1992 ZOSTER VACCINE (1 of 2) 1992 Respiratory Syncytial Virus (RSV) Vaccine Pt: or over 60 yrs (1 - 1-dose 75+ series) 2017 COVID-19 VACCINE ( - 2023-2 5 season) 2024 INFLUENZA VACCINE (#1) 2024 DEPRESSION SCREENING 10/25/2024 MEDICARE AWV CALENDAR YEAR 2024 HEPATITIS B VACCINE Aged Out No longe r eligible based on patient's age to complete this topic HIB VACCINE Aged Out No longer eligi ble based on patient's age to complete this topic HPV VACCINE Aged Out No longer eligi ble based on patient's age to complete this topic MENINGOCOCCAL (Group B) VACCINE Aged Out No longer eligible based on patient's age to complete this topic MENINGOCOCCAL VACCINE Aged Out No renny jarocho eligible based on patient's age to complete this topic Medical Devices Implanted Type Area Ballet Company Member Device Identifier Shelf Expiration Date Model / Serial / Lot Kt Penile Prosth Assem Mohit Implanted:Qty: 1 on 12/30/2015 by Fred Diggs MD at [facility] N/A: Penis [employer] 08/06/2020 [id number] / / [id number] Resvr Titan 75cc Implanted:Qty: 1 on 12/30/2015 by Fred Diggs MD at [facility] N/A: Penis [employer] 09/28/2020 [id number] / / [id number] Implt Titan Scrot Cylnr W/Pump 0deg 20cm Implanted:Qty: 1 on 12/30/2015 by Fred Diggs MD at [facility] N/A: Penis [employer] 07/23/2020 [id number] / / [id number] Advance Directives * Full Code (Latest Code Status on File) Date Activated Date Inactivated Comments 12/30/2015 12:32 PM 12/31/2015 3:56 PM Care Teams Distillery Worker General Relationship Specialty Start Date End Date Jade Dawkins MD [address] [place], [place] [id number] PCP - General Family Medicine 12/16/15
--- OUTSIDE RECORDS SUMMARY | 2024-12-09 08:05 | XMS_ITS | Referral Summary ---
Author Organization [facility] Address [address] [place] [address] Care Team Providers Care Youth Specialist Name Role Phone Jade Dawkins MD Primary Care Provider + Source Comments [facility],non-owned Affiliates and Associated Physician Practices is amultiple site organization consisting of ambulatory clinics and hospital sitesin [place], [place], [place] and [place]. This disclosure is being madepursuant to the Care Everywhere program and may not contain all information available regarding this patient. Last updated 18.[facility] Allergies No known active allergies Medications * [...] Comments Blood Pressure 144/73 12/31/2015 12:06 PM MEDICAL ADVISOR Pulse 77 12/31/2015 12:06 PM MEDICAL ADVISOR Temperature 36.3 C (97.3 F) 12/31/2015 12:06 PM MEDICAL ADVISOR Respiratory Rate 18 12/31/2015 12:06 PM MEDICAL ADVISOR Oxygen Saturation 93% 12/31/2015 12:06 PM MEDICAL ADVISOR Inhaled Oxygen Concentration - - Weight 129.7 kg (286 lb) 12/30/2015 5:48 AM MEDICAL ADVISOR Height 193 cm (6' 4 ) 12/30/2015 5:48 AM MEDICAL ADVISOR Body Mass Index 34.81 12/30/2015 5:48 AM MEDICAL ADVISOR Functional Status Functional Status Response Date of Assess ment Is person deaf or have serious hearing difficult y? No 12/30/2015 Is person blind or have serious difficulty seein g? No 12/30/2015 Does person have serious dif ficulty walking/climbing stairs? No 12/30/2015 Does person have difficulty dressing/bathing? No 12/30/2015 Does person have difficulty doing errands alone? No 12/30/2015 Cognitive Status Response Date of Assessm ent Does person have difficulty concentrating/remembering/making decisions? No 12/30/2015 Plan of Treatment Not on file Medical Devices Implanted Type Area Fisheries Management Biologist Device Identifier Shelf Expiration Date Model / Serial / Lot Kt Penile Prosth Yareddonnell Rueda Implanted:Qty: 1 on 12/30/2015 by Fred Diggs MD at [facility] N/A: Penis [employer] [facility] 08/06/2020 [id number] / / [id number] Resvr Titan 75cc Implanted:Qty: 1 on 12/30/2015 by Fred Diggs MD at [facility] N/A: Penis [employer] 09/28/2020 [id number] / / [id number] Implt Mohit Scrot Cylnr W/Pump 0deg 20cm Implanted:Qty: 1 on 12/30/2015 by Fred Diggs MD at [facility] N/A: Penis [employer] 07/23/2020 [id number] / / [id number] Advance Directives * Full Code (Latest Code Status on File) Date Activated Date Inactivated Comments 12/30/2015 12:32 PM 12/31/2015 3:56 PM Care Teams Youth Specialist Relationship Specialty Start Date End Date Jade Dawkins MD [address] [place] [id number] PCP - General Family Medicine 12/16/15
[2024-12-09 08:25] LABS: Basophils Absolute Auto 0.1 K/mm3 (0.0-0.1); Basophils Percent Auto 0.9 % (0.2-1.2); Eosinophils Absolute Auto 0.2 K/mm3 (0-0.3); Eosinophils Percent Auto 2.6 % (0-4.4); Hematocrit 46.7 % (42.0-52.0); Hemoglobin 14.6 g/dL (14.0-18.0); Immature Granulocyte Absolute 0.01 K/mm3 (0.00-0.031); Immature Granulocyte Percent A 0.2 % (0-0.5); Lymphocytes Absolute Auto 1.56 K/mm3 (0.9-3.2); Lymphocytes Percent Auto 24.3 % (18.3-44.2); Mean Corpuscular HGB Conc 31.3 g/dl (32-36); Mean Corpuscular Hemoglobin 29.8 pg (26-34); Mean Corpuscular Volume 95.3 fl (80-100); Mean Platelet Volume 11.5 fl (7.4-10.4); Monocytes Absolute Auto 0.8 K/mm3 (0.1-0.6); Monocytes Percent Auto 12.5 % (2.6-8.5); Neutrophils Absolute Auto 3.8 K/mm3 (1.3-6.7); Neutrophils Percent Auto 59.5 % (45.5-73.1); Platelet Count Result 182 k/mm3 (150-375); Red Cell Distribution Width 15.2 % (11.5-14.5); White Blood Count 6.4 K/mm3 (4.5-10.0)
[2024-12-09 08:32] LABS: Alanine Aminotransferase 22 U/L (6-50); Albumin Level 3.9 g/dL (3.5-5.1); Alkaline Phosphatase 59 U/L (38-126); Anion Gap 7 mmol/L (4-12); Aspartate Amino Transferase 24 U/L (17-59); Bilirubin,Total 0.7 mg/dL (0.2-1.3); Blood Urea Nitrogen 21 mg/dL (9-20); Carbon Dioxide 30 mmol/L (22-30); Chloride 103 mmol/L (98-107); Cholesterol 94 mg/dL (0-200); Estimated Glomerular Filt Rate > 60; Glucose 111 mg/dL (65-110); HDL Direct 45 mg/dL; Potassium 4.1 mmol/L (3.4-5.0); Sodium 140 mmol/L (137-145); Triglycerides 68 mg/dL (<150)
[2024-12-09 08:43] LABS: LDL Cholesterol Direct 31 mg/dL
[2024-12-09 09:03] LABS: Hemoglobin A1C 6.2 % (<5.7)
== END 2024-12-09 08:01 | disposition home or self-care (01) ==
PROVIDERS: PCP Family Medicine; Visit Provider Physician Assistant
DX: I50.32 Chronic diastolic (congestive) heart failure (principal); I10 Essential (primary) hypertension; E78.2 Mixed hyperlipidemia; R73.9 Hyperglycemia, unspecified; J44.9 Chronic obstructive pulmonary disease, unspecified
CPT/HCPCS: 36415; 80053; 80061; 83036; 85025